=== PATIENT | female | born 1950 | race Caucasian/White ===

== ENCOUNTER 2019-10-14 12:43 | Emergency (ER) | payer OTHER ==
[~2019-10-14] VITALS: Ht 162.6 cm; Wt 79.4 kg
[~2019-10-14 12:43] MED LIST: ADVAIR 2501 DISK W/1; CEFADROXIL500 MG PO; COZAAR50 MG; NABUMETONE500 MG PO; NABUMETONE750 MG PO; NEXIUM5 MG; PERCOCET 5/3251 TAB PO; PREVACID30 MG
[2019-10-14] MEDS ORDERED: PERCOCET 5-3251 EACH PO (15:14)
== END 2019-10-14 15:20 | disposition home or self-care (01) ==
LOC: ER 12:43
DX: S93.492A Sprain of other ligament of left ankle, initial encounter (principal); S80.02XA Contusion of left knee, initial encounter; W01.0XXA Fall on same level from slipping, tripping and stumbling without subsequent striking against object, initial encounter; Y93.E5 Activity, floor mopping and cleaning; Y92.098 Other place in other non-institutional residence as the place of occurrence of the external cause; Y99.8 Other external cause status

== ENCOUNTER 2019-11-28 12:35 | Emergency (ER) | payer OTHER ==
[~2019-11-28] VITALS: Ht 160 cm; Wt 80.3 kg
[~2019-11-28 12:35] MED LIST changes: +PERCOCET 5-3251 EACH PO
[2019-11-28] MEDS ORDERED: CARVEDILOL12.5 MG (12:56)
[2019-11-28] MEDS ORDERED: COZAAR100 MG (12:56)
[2019-11-28] MEDS ORDERED: PANTOPRAZOLE SO20 MG (12:57)
[2019-11-28] MEDS ORDERED: CIPRO500 MG PO (15:03)
[2019-11-28] MEDS ORDERED: PYRIDIUM100 MG PO (15:59)
== END 2019-11-28 16:13 | disposition home or self-care (01) ==
LOC: ER 12:35
DX: N39.0 Urinary tract infection, site not specified (principal)

== ENCOUNTER 2020-08-27 07:20 | Emergency (ER) | payer OTHER ==
[~2020-08-27] VITALS: Ht 160 cm; Wt 79.4 kg
[~2020-08-27 07:20] MED LIST changes: +CARVEDILOL12.5 MG; +CIPRO500 MG PO; +COZAAR100 MG; +PANTOPRAZOLE SO20 MG; +PYRIDIUM100 MG PO
[2020-08-27] MEDS ORDERED: ATARAX25 MG PO (11:26)
[2020-08-27] MEDS ORDERED: CRESTOR10 MG PO (11:26)
[2020-08-27] MEDS ORDERED: LOSARTAN POTAS100 MG PO (11:26)
== END 2020-08-27 11:44 | disposition home or self-care (01) ==
LOC: ER 07:20
DX: K29.70 Gastritis, unspecified, without bleeding (principal); R10.84 Generalized abdominal pain

== ENCOUNTER 2021-08-22 14:00 | Emergency (ER) | payer OTHER ==
[~2021-08-22] VITALS: Ht 162.6 cm; Wt 79.4 kg
[~2021-08-22 14:00] MED LIST changes: +ATARAX25 MG PO; +CRESTOR10 MG PO; +LOSARTAN POTAS100 MG PO
== END 2021-08-22 16:41 | disposition home or self-care (01) ==
LOC: ER 14:00
DX: U07.1 COVID-19 (principal); I10 Essential (primary) hypertension; Z88.8 Allergy status to other drugs, medicaments and biological substances

== ENCOUNTER 2021-11-02 14:48 | Emergency (ER) | payer OTHER ==
[~2021-11-02] VITALS: Ht 160 cm; Wt 79.4 kg
[2021-11-02] MEDS ORDERED: METOPROLOL SUCC25 MG PO (14:54)
[2021-11-02] MEDS ORDERED: MECLIZINE HCL25 MG PO (14:55)
[2021-11-02] MEDS ORDERED: CARAFATE1 GM PO (17:51)
[2021-11-02] MEDS ORDERED: PEPCID AC20 MG PO (17:51)
== END 2021-11-02 17:55 | disposition home or self-care (01) ==
LOC: ER 14:48
DX: K29.70 Gastritis, unspecified, without bleeding (principal); I10 Essential (primary) hypertension; Z88.8 Allergy status to other drugs, medicaments and biological substances

== ENCOUNTER 2022-01-17 13:54 | Emergency (ER) | payer OTHER ==
[~2022-01-17] VITALS: Ht 160 cm; Wt 79.4 kg
[~2022-01-17 13:54] MED LIST changes: +CARAFATE1 GM PO; +MECLIZINE HCL25 MG PO; +METOPROLOL SUCC25 MG PO; +PEPCID AC20 MG PO
== END 2022-01-17 19:38 | disposition home or self-care (01) ==
LOC: ER 13:54
DX: A49.3 Mycoplasma infection, unspecified site (principal); I10 Essential (primary) hypertension; Z88.8 Allergy status to other drugs, medicaments and biological substances

== ENCOUNTER 2022-08-17 14:02 | Emergency (ER) | payer OTHER ==
[~2022-08-17] VITALS: Ht 157.5 cm; Wt 77.1 kg
[2022-08-17] MEDS ORDERED: COZAAR100 MG PO (14:21)
[2022-08-17] MEDS ORDERED: TOPROL XL25 M1 PO (14:21)
[2022-08-17] MEDS ORDERED: NIFE60TA3 PO (14:21)
[2022-08-17] MEDS ORDERED: ANTIVERT25 M2 PO (14:22)
[2022-08-17] MEDS ORDERED: PREVACID30 MG PO (14:22)
== END 2022-08-17 16:50 | disposition home or self-care (01) ==
LOC: ER 14:02
DX: H81.10 Benign paroxysmal vertigo, unspecified ear (principal); R53.81 Other malaise; Z88.5 Allergy status to narcotic agent

== ENCOUNTER 2022-11-01 12:18 | Emergency (ER) | payer OTHER ==
[~2022-11-01] VITALS: Ht 162.6 cm; Wt 74.8 kg
[~2022-11-01 12:18] MED LIST changes: +ANTIVERT25 M2 PO; +COZAAR100 MG PO; +NIFE60TA3 PO; +PREVACID30 MG PO; +TOPROL XL25 M1 PO
[2022-11-01] MEDS ORDERED: SINGULAIR10 MG PO (13:30)
[2022-11-01] MEDS ORDERED: DICLOFENAC SODI75 MG PO (18:20)
== END 2022-11-01 18:27 | disposition home or self-care (01) ==
LOC: ER 12:18
DX: S20.213A Contusion of bilateral front wall of thorax, initial encounter (principal); S60.222A Contusion of left hand, initial encounter; S50.01XA Contusion of right elbow, initial encounter; S80.02XA Contusion of left knee, initial encounter; W19.XXXA Unspecified fall, initial encounter; Y93.9 Activity, unspecified; Y92.018 Other place in single-family (private) house as the place of occurrence of the external cause; Y99.9 Unspecified external cause status; Z88.8 Allergy status to other drugs, medicaments and biological substances; I10 Essential (primary) hypertension

== ENCOUNTER 2023-02-08 12:16 | Emergency (ER) | payer OTHER ==
[~2023-02-08] VITALS: Ht 160 cm; Wt 79.4 kg
[~2023-02-08 12:16] MED LIST changes: +DICLOFENAC SODI75 MG PO; +SINGULAIR10 MG PO
[2023-02-08 18:13] LABS: HEMATOCRIT 39.6 % (36.0-45.00); HEMOGLOBIN 12.9 g/dL (12.0-15.00); MEAN CELL VOLUME 86.2 fL (80.00-100.00); MEAN CORPUSCULAR HEMOGLOBIN 28.1 pg (27.00-32.0); MEAN CORPUSCULAR HGB CONC 32.6 g/dl (32.0-36.0); PLATELET COUNT 310 K/uL (150-450); RED BLOOD COUNT 4.59 M/uL (4.00-6.00); RED CELL DISTRIBUTION WIDTH 13.3 % (11.5-14.5)
== END 2023-02-08 19:32 | disposition home or self-care (01) ==
LOC: ER 12:16
PROVIDERS: General Practice
DX: J06.9 Acute upper respiratory infection, unspecified (principal); Z20.822 Contact with and (suspected) exposure to COVID-19; I10 Essential (primary) hypertension; Z88.8 Allergy status to other drugs, medicaments and biological substances; Z87.09 Personal history of other diseases of the respiratory system
CPT/HCPCS: 36415; 71046; 94640; 96365; 99284; J2930

== ENCOUNTER 2023-04-10 13:46 | Emergency (ER) | payer OTHER ==
[~2023-04-10] VITALS: Ht 160 cm; Wt 76.2 kg
[2023-04-10] MEDS ORDERED: DEXAMETHASONE SODIUM PHOSPHATE 4 MG/ML VIAL IM ONE (16:45)
[2023-04-10 17:11] LABS: HEMATOCRIT 38.3 % (36.0-45.00); HEMOGLOBIN 12.7 g/dL (12.0-15.00); MEAN CELL VOLUME 83.7 fL (80.00-100.00); MEAN CORPUSCULAR HEMOGLOBIN 27.7 pg (27.00-32.0); MEAN CORPUSCULAR HGB CONC 33.1 g/dl (32.0-36.0); PLATELET COUNT 299 K/uL (150-450); RED BLOOD COUNT 4.58 M/uL (4.00-6.00); RED CELL DISTRIBUTION WIDTH 13.9 % (11.5-14.5)
== END 2023-04-10 17:52 | disposition home or self-care (01) ==
LOC: ER 13:47
PROVIDERS: General Practice
DX: J06.9 Acute upper respiratory infection, unspecified (principal); I10 Essential (primary) hypertension; Z88.8 Allergy status to other drugs, medicaments and biological substances; Z20.822 Contact with and (suspected) exposure to COVID-19

== ENCOUNTER 2024-08-30 14:51 | Emergency (ER) | payer OTHER ==
[~2024-08-30] VITALS: Ht 160 cm; Wt 78.0 kg
[2024-08-30 15:38] VITALS: BP 112/58; O2SAT 98
[2024-08-30] MEDS ORDERED: KETOROLAC TROMETHAMINE 60 MG VIAL IM ONE ×2 (16:30→16:58)
[2024-08-30] MEDS ORDERED: CEFTRIAXONE SODIUM 1,000 MG VIAL IM ONE (16:30)
[2024-08-30] MEDS ORDERED: TAMSULOSIN HCL 0.4 MG CAP PO ONE ×2 (16:30→16:58)
[2024-08-30] MEDS ORDERED: LIDOCAINE HCL 1% 10ML VIAL ONE (16:58)
[2024-08-30] MEDS ORDERED: CEFTRIAXONE SODIUM 1,000 MG VIAL ONE (16:59)
[2024-08-30 17:22] LABS: BASO % 0.1 % (0.1-1.2); EOS # 0.00 (0.04-0.54); EOS % 0.0 % (0.7-7.0); LYMPH # 0.62 (1.18-3.74); LYMPH % 6.1 % (19.3-53.1); MEAN PLATELET VOLUME 9.60 fl (9.4-12.4); MONO # 0.12 (0.24-0.82); MONO % 1.2 % (4.7-12.5); NEUT # 9.41 (1.56-6.13); NEUT % 92.2 % (34.0-71.1); RED CELL DISTRIBUTION WIDTH 13.8 % (11.6-14.4)
[2024-08-30 17:55] LABS: ALT/SGPT 27.0 U/L (12-78); AST/SGOT 22.0 U/L (15-37); BILIRUBIN TOTAL 1.04 mg/dL (0.3-1.2); BUN CREA RATIO 30.0 (7.0-25.0); CREATININE SERUM 0.81 mg/dL (0.55-1.02); GFR 68.93; GLOBULINA 3.4 G/DL (2.4-3.5); GLUCOSE FASTING 133.0 mg/dL (65-100); OSMOLALITY SERUM 285.0 MOSM/KG (275-295)
[2024-08-30 18:18] LABS: URINE APPEARANCE Clear; URINE BILIRRUBIN Negative (NEGATIVE); URINE BLOOD Negative; URINE COLOR Yellow; URINE GLUCOSE Negative (NEGATIVE); URINE KETONE 15 (NEGATIVE); URINE LEUKOCYTE Moderate; URINE NITRATE Negative; URINE PROTEIN Negative (NEGATIVE); URINE UROBILINOGEN 1.0 E.U./dl
[2024-08-30 18:20] LABS: URINE BACTERIA 2062.8 uL (0.0-1933); URINE EPITHELIAL CELLS 14.9 uL (0.0-38.8); URINE RBC 18.6 uL (0.0-20.8); URINE WBC 298.5 uL (0.0-23.2)
[2024-08-30 18:56] LABS: TYPE CELLS RENAL TUBULAR; URINE CAST 0.43 uL (0.0-1.40)
[2024-08-30] MEDS ORDERED: PEPCID AC20 MG PO (19:04)
[2024-08-30] MEDS ORDERED: BACTRIM DS TAB1 EACH PO (19:04)
[2024-08-30] MEDS ORDERED: PYRIDIUM DS200 MG PO (19:04)
== END 2024-08-30 19:28 | disposition home or self-care (01) ==
LOC: ER 15:21
PROVIDERS: General Practice
DX: N39.0 Urinary tract infection, site not specified (principal); R19.7 Diarrhea, unspecified; Z88.8 Allergy status to other drugs, medicaments and biological substances; J45.909 Unspecified asthma, uncomplicated; K21.9 Gastro-esophageal reflux disease without esophagitis; I10 Essential (primary) hypertension; G43.909 Migraine, unspecified, not intractable, without status migrainosus; B96.29 Other Escherichia coli [E. coli] as the cause of diseases classified elsewhere